=== PATIENT | female | born 1975 | race Caucasian/White ===

== ENCOUNTER 2024-07-28 05:04 | Inpatient (IN) | payer MEDICAID ==
[~2024-07-28] VITALS: Ht 175.3 cm; Wt 80.0 kg
[~2024-07-28 05:04] MED LIST: CYCL-1 PO
[2024-07-28] MEDS ORDERED: LIDOcaine 1% W/epiNEPHrine 1:200,000 10ml vial IJ ONE (08:35)
[2024-07-28] MEDS: LIDOcaine 1% W/epiNEPHrine 1:100,000 20ml vial IJ ONE (08:40)
[2024-07-28 09:11] LABS: BASOPHILS % (AUTO) 0.4 % (0-1); EOSINOPHILS # (AUTO) 0.1 X10'3 (0-0.9); EOSINOPHILS % (AUTO) 2.6 % (0-6); HEMATOCRIT 38.6 % (35.0-45.0); HEMOGLOBIN 13.3 g/dl (12.0-16.0); LYMPHOCYTES % (AUTO) 39.1 % (21-51); MEAN CORPUSCULAR HEMOGLOBIN 35.6 PG (27.0-31.0); MEAN CORPUSCULAR HGB CONC 34.5 g/dL (33.0-36.5); MEAN CORPUSCULAR VOLUME 103.3 FL (78-98); MEAN PLATELET VOLUME 6.3 FL (7.4-10.4); MONOCYTES # (AUTO) 0.4 X10'3 (0-0.9); MONOCYTES % (AUTO) 7.8 % (2-12); NEUTROPHILS # (AUTO) 2.6 X10'3 (1.8-7.7); NEUTROPHILS % (AUTO) 50.1 % (42-75); PLATELET COUNT 181 X10'3 (140-440); RED BLOOD COUNT 3.73 X10'6 (4.20-5.60); RED CELL DISTRIBUTION WIDTH 16.2 % (11.5-14.5); WHITE BLOOD COUNT 5.2 X10'3 (4.5-11.0)
[2024-07-28] MEDS: CefTRIAXone 1000mg IM Kit (w/lidocaine diluent) IM ONE (09:21)
[2024-07-28] MEDS: sulfamethoxazole/trimethoprim DS (800/160mg) tablet PO ONE (09:22)
[2024-07-28] MEDS: TETanus/Pertussis (Acell)/Diphther VAC/PF (Tdap-Adult) 0.5ml syringe IMVAC ONE (09:22)
[2024-07-28 10:46] LABS: ALANINE AMINOTRANSFERASE 134 U/L (12-78); ALBUMIN 3.4 G/DL (3.4-5.0); ALBUMIN/GLOBULIN RATIO 0.8 (1.1-1.5); ALKALINE PHOSPHATASE 76 IU/L (46-116); ANION GAP 14 (8-16); ASPARTATE AMINO TRANSFERASE 325 U/L (10-37); BILIRUBIN,TOTAL 0.4 MG/DL (0.1-1.0); BLOOD UREA NITROGEN 10 MG/DL (7-18); BUN/CREATININE RATIO 13.9 (10.0-20.0); C-REACTIVE PROTEIN 2.12 MG/DL (0.0-0.5); CHLORIDE 105 MMOL/L (99-107); CREATININE 0.72 MG/DL (0.40-0.90); GLUCOSE 70 MG/DL (70-104); POTASSIUM 3.8 MMOL/L (3.5-5.1); SODIUM 144 MMOL/L (135-145); TOTAL CARBON DIOXIDE 24.6 MMOL/L (24-32); TOTAL PROTEIN 7.6 G/DL (6.4-8.2); eCRCL 100 ML/MIN; eGFR 86 ML/MIN
[2024-07-28] MEDS: normal saline 1000ml 1,000 ML IV ONE ×4 (12:14→15:10)
[2024-07-28] MEDS: vancomycin/NS 1 GM ADD-VANTAGE 250 ML IV ONE (12:24)
[2024-07-28] MEDS: oxyCODONE IR 5mg (immed. release) tablet PO ONE (12:25)
[2024-07-28] MEDS: ondansetron 4mg rapidly disintigrating tab PO ONE (12:25)
[2024-07-28] MEDS: CefTRIAXone/D5W-Rocephin 1gm 50 ML IV ONE (15:10)
[2024-07-28] MEDS ORDERED: magnesium Cl slow-release 64mg tablet PO PRN (15:25)
[2024-07-28] MEDS ORDERED: mag hydrox/Alum hydrox/simeth 30ml oral suspension PO PRN (15:25)
[2024-07-28] MEDS ORDERED: potassium Cl 40MEQ/1/2NS 520ml 520 ML IV PRN (15:25)
[2024-07-28] MEDS ORDERED: acetaminophen 325mg tablet PO PRN (15:25)
[2024-07-28] MEDS ORDERED: potassium Cl 20 mEq SR tablet PO PRN ×2 (15:25)
[2024-07-28] MEDS: HYDROcodone/acetaminophen 10/325mg tab PO PRN (16:36)
[2024-07-28] MEDS: ondansetron/PF 4mg/2ml inj IV PRN (16:52)
[2024-07-28] MEDS: proCHLORperazine 10 MG/2 ml inj IV PRN (17:53)
[2024-07-28] MEDS: normal saline 1000ml 1,000 ML IV SCH (18:20)
[2024-07-28] MEDS ORDERED: CLON-852 PO (18:21)
[2024-07-28] MEDS: docusate sod 100mg capsule PO SCH (19:34)
[2024-07-28] MEDS: K and/or MAG REPLACEMENT MC SCH (19:35)
[2024-07-28 20:35] VITALS: RESP 18; O2SAT 96
[2024-07-28 22:00] VITALS: BP 137/86; PULSE 85; RESP 18; TEMP 98.6; O2SAT 96
[2024-07-29] VITALS (7 sets, daily range): BP systolic 131–147; BP diastolic 82–97; PULSE 67–80; RESP 15–18; TEMP 97.4–98.4; O2SAT 94–99
[2024-07-29] MEDS: clonazePAM 1mg tablet PO ONE (00:08)
[2024-07-29] MEDS: VANCOMYCIN/WATER FOR INJ (PEG) 1.25GM/250 ML IVPB IV SCH (00:09)
[2024-07-29 05:00] LABS: BASOPHILS % (AUTO) 0.9 % (0-1); EOSINOPHILS # (AUTO) 0.1 X10'3 (0-0.9); EOSINOPHILS % (AUTO) 3.6 % (0-6); HEMATOCRIT 32.7 % (35.0-45.0); HEMOGLOBIN 11.5 g/dl (12.0-16.0); LYMPHOCYTES # (AUTO) 1.5 X10'3 (1.1-4.8); LYMPHOCYTES % (AUTO) 39.3 % (21-51); MEAN CORPUSCULAR HEMOGLOBIN 36.1 PG (27.0-31.0); MEAN CORPUSCULAR HGB CONC 35.1 g/dL (33.0-36.5); MEAN PLATELET VOLUME 6.2 FL (7.4-10.4); MONOCYTES # (AUTO) 0.5 X10'3 (0-0.9); MONOCYTES % (AUTO) 12.6 % (2-12); NEUTROPHILS # (AUTO) 1.7 X10'3 (1.8-7.7); NEUTROPHILS % (AUTO) 43.6 % (42-75); PLATELET COUNT 122 X10'3 (140-440); RED BLOOD COUNT 3.17 X10'6 (4.20-5.60); WHITE BLOOD COUNT 3.9 X10'3 (4.5-11.0)
[2024-07-29 05:27] LABS: ALANINE AMINOTRANSFERASE 84 U/L (12-78); ALBUMIN 2.5 G/DL (3.4-5.0); ALBUMIN/GLOBULIN RATIO 0.7 (1.1-1.5); ALKALINE PHOSPHATASE 59 IU/L (46-116); ANION GAP 8 (8-16); ASPARTATE AMINO TRANSFERASE 146 U/L (10-37); BILIRUBIN,TOTAL 0.7 MG/DL (0.1-1.0); BLOOD UREA NITROGEN 7 MG/DL (7-18); BUN/CREATININE RATIO 10.8 (10.0-20.0); CALCIUM 7.3 MG/DL (8.5-10.1); CHLORIDE 101 MMOL/L (99-107); CREATININE 0.65 MG/DL (0.40-0.90); GLUCOSE 95 MG/DL (70-104); POTASSIUM 3.1 MMOL/L (3.5-5.1); SODIUM 136 MMOL/L (135-145); TOTAL CARBON DIOXIDE 26.8 MMOL/L (24-32); TOTAL PROTEIN 5.9 G/DL (6.4-8.2); eCRCL 111 ML/MIN; eGFR > 90 ML/MIN
[2024-07-29] MEDS: CefTRIAXone/D5W-Rocephin 1gm 50 ML IV SCH (08:48)
[2024-07-29] MEDS: ringers solution, lacted 1,000 ML IV SCH (08:54)
[2024-07-29] MEDS: magnesium sulf-water 2g/50mL 50 ML IV PRN (08:58)
[2024-07-29] MEDS: magnesium sulf-water 4G/100mL 100 ML IV PRN (13:16)
[2024-07-29 14:56] LABS: BILIRUBIN,URINE NEGATIVE (Neg); CLARITY,URINE CLEAR (Clear); COLOR,URINE STRAW (Yellow); GLUCOSE, URINE NEGATIVE (Neg); KETONES,URINE TRACE mg/dl (Neg); LEUKOCYTE ESTERASE ,URINE NEGATIVE (Neg); NITRITES, URINE NEGATIVE (Neg); OCCULT BLOOD,URINE NEGATIVE (Neg); PH,URINE 7.5 (4.8-8.0); PROTEIN,URINE NEGATIVE (Neg)
[2024-07-29 15:01] LABS: UA COLLECTION TYPE OTHER
[2024-07-29 15:07] LABS: CHLORIDE,URINE RANDOM 84 MEQ/L; SODIUM,URINE RANDOM 111 MEQ/L
[2024-07-29 15:18] LABS: MAGNESIUM 2.8 MG/DL (1.5-2.4)
[2024-07-29 18:43] LABS: ALLEN'S TEST POSITIVE
[2024-07-29 18:44] LABS: ABG HCO3 26.2 mmol/L (21.0-28.0); ABG PCO2 (T) 34.6 mmHg (32.0-45.0); ABG PH (T) 7.497 (7.350-7.450); PATIENT TEMPERATURE 36.9
[2024-07-29 18:45] LABS: ABG BASE EXCESS 3.2 mmol/L (-2.0-3.0); ABG OXYGEN SATURATION 98.6 % (94.0-98.0); FCOHb 0.4 % (0.5-1.5); FHHb 1.4 % (0.0-5.0); FMetHb 0.3 % (0.0-1.5); FO2Hb 97.9 % (94.0-98.0); TOTAL HEMOGLOBIN 12.8 G/dl (12.0-16.0)
[2024-07-29] MEDS ORDERED: GADOTERATE MEGLUMINE 7.5 MMOL/15 ML VIAL IV ONE (18:50)
[2024-07-29] MEDS: clonazePAM 1mg tablet PO PRN (20:51)
[2024-07-29] MEDS: heparin, porcine 5000 units/ml vial SQ SCH (20:51)
[2024-07-30 06:00] VITALS: BP 126/87; PULSE 66; RESP 17; TEMP 97.4; O2SAT 99
[2024-07-30 06:55] LABS: BASOPHILS % (AUTO) 0.6 % (0-1); EOSINOPHILS # (AUTO) 0.2 X10'3 (0-0.9); EOSINOPHILS % (AUTO) 7.8 % (0-6); HEMATOCRIT 34.9 % (35.0-45.0); HEMOGLOBIN 12.2 g/dl (12.0-16.0); LYMPHOCYTES # (AUTO) 1.1 X10'3 (1.1-4.8); LYMPHOCYTES % (AUTO) 36.5 % (21-51); MEAN CORPUSCULAR HGB CONC 34.9 g/dL (33.0-36.5); MEAN CORPUSCULAR VOLUME 103.2 FL (78-98); MEAN PLATELET VOLUME 6.9 FL (7.4-10.4); MONOCYTES # (AUTO) 0.3 X10'3 (0-0.9); MONOCYTES % (AUTO) 9.8 % (2-12); NEUTROPHILS # (AUTO) 1.3 X10'3 (1.8-7.7); NEUTROPHILS % (AUTO) 45.3 % (42-75); PLATELET COUNT 131 X10'3 (140-440); RED BLOOD COUNT 3.38 X10'6 (4.20-5.60); RED CELL DISTRIBUTION WIDTH 16.3 % (11.5-14.5); WHITE BLOOD COUNT 2.9 X10'3 (4.5-11.0)
[2024-07-30 07:23] LABS: ALANINE AMINOTRANSFERASE 74 U/L (12-78); ALBUMIN 2.6 G/DL (3.4-5.0); ALBUMIN/GLOBULIN RATIO 0.7 (1.1-1.5); ALKALINE PHOSPHATASE 64 IU/L (46-116); ANION GAP 8 (8-16); ASPARTATE AMINO TRANSFERASE 108 U/L (10-37); BILIRUBIN,TOTAL 0.8 MG/DL (0.1-1.0); BLOOD UREA NITROGEN 3 MG/DL (7-18); BUN/CREATININE RATIO 5.4 (10.0-20.0); CHLORIDE 104 MMOL/L (99-107); CREATININE 0.56 MG/DL (0.40-0.90); GLUCOSE 93 MG/DL (70-104); MAGNESIUM 1.8 MG/DL (1.5-2.4); POTASSIUM 3.6 MMOL/L (3.5-5.1); SODIUM 137 MMOL/L (135-145); TOTAL CARBON DIOXIDE 24.7 MMOL/L (24-32); TOTAL PROTEIN 6.2 G/DL (6.4-8.2); eCRCL 128 ML/MIN; eGFR > 90 ML/MIN
[2024-07-30 07:34] LABS: ANISOCYTOSIS 1+; PLATELET ESTIMATE DECREASED; TOTAL CELLS COUNTED 100
[2024-07-30 08:40] VITALS: RESP 16
[2024-07-30 08:53] LABS: HEMOGLOBIN A1C 4.8 % (4.5-6.2)
[2024-07-30] MEDS: magnesium hydroxide 30ml (MOM) UD suspension PO PRN (08:53)
[2024-07-30 10:00] VITALS: BP 160/80; PULSE 88; RESP 20; TEMP 97.5; O2SAT 99
[2024-07-30 11:01] VITALS: RESP 16
[2024-07-30] MEDS: VANCOMYCIN LEVEL IV ONE (11:49)
[2024-07-30] MEDS ORDERED: LINE600T14 PO (13:57)
[2024-07-30] MEDS ORDERED: CEFD300C3 PO (13:57)
[2024-07-30] MEDS ORDERED: HYDR-3965 PO (14:05)
[2024-07-30] MEDS ORDERED: ASPI81TA52 PO (14:06)
[2024-07-31] MEDS ORDERED: VANCOMYCIN/WATER FOR INJ (PEG) 1.5GM/300 ML IVPB IV SCH
[2024-08-01] MEDS ORDERED: VANCOMYCIN LEVEL IV ONE (11:30)
== END 2024-07-30 15:58 | disposition home or self-care (01) | DRG 720 ==
LOC: ER 05:04 → ED HOLD 15:25 → SUR 3N 20:35
PROVIDERS: ADMIT Internal Medicine; ATTEND Nurse Practitioner Family
DX: A41.9 Sepsis, unspecified organism (principal); E83.42 Hypomagnesemia; F41.9 Anxiety disorder, unspecified; L03.113 Cellulitis of right upper limb; M70.21 Olecranon bursitis, right elbow; G89.29 Other chronic pain; R74.01 Elevation of levels of liver transaminase levels; E87.6 Hypokalemia; Z90.5 Acquired absence of kidney
CPT/HCPCS: 36415; 71045; 73080; 73223; 80053; 80202; 80320; 81003; 82436; 82693; 82803; 83036; 83605; 83735; 84132; 84133; 84145; 84300; 85007; 85018; 85025; 86140; 87040; 87081; 90715; 99285; A4565; A6258; A6449; A9575; G0378; J0696; J0780; J1644; J2405; J3370; J3372; J3475; J7030; J7120

== ENCOUNTER 2025-05-08 14:17 | Emergency (ER) | payer MEDICAID ==
[~2025-05-08] VITALS: Ht 175.3 cm; Wt 71.1 kg
[~2025-05-08 14:17] MED LIST changes: +CEFD300C3 PO; +CLON-852 PO; -CYCL-1 PO; +LINE600T14 PO
[2025-05-08 14:24] VITALS: TEMP 97.8
--- NOTE | 2025-05-08 14:50 | Physician Documentation ---
History of Present Illness General Chief Complaint: See Chief Complaint Stated Complaint: POSS SEIZURE Time Seen by MD: 14:51 OK to notify your PCP?: No Primary Medical Doctor: Julien Source: patient, RN notes reviewed Mode of Arrival: POV Exam Limitations: no limitations History of Present Illness Initial Comments 49 Year old female, with history of seizures for the last four years - most recently 1.5 months ago, presents to the ED complaining of history in her head and a flashing light in her right eye that began a few hours ago. Patient reports similar symptoms in the past, which have proceeded seizures. She is currently not on any seizure medications and is requesting a prescription for Keppra, which she used to take. She reports occasional alcohol consumption but denies any drug use. Medication Reconciliation Allergies: Coded Allergies: fentanyl (Verified Allergy, Intermediate, HIVES, 05/08/25) Uncoded Allergies: FLU VACCINATION (Adverse Reaction, Intermediate, SWELLING, 06/25/16) Scheduled Cefdinir (Cefdinir), 1 CAP PO Q12H Levetiracetam (Keppra), 1 TAB PO Q12H Linezolid (Linezolid), 1 TAB PO Q12H Scheduled PRN Clonazepam (Klonopin), 1 TAB PO TID PRN PRN for anxiety, (Reported) Past Medical History Past Medical History: Seizures, Kidney Stones, Chronic Back Pain, Anxiety Past Surgical History: abdominal surgery Smoking: Non-Smoker Alcohol Use: None Drug Use: none Lives In: Home Review of Systems All Other Systems at this time: Reviewed and Negative ROS As stated above in the HPI, otherwise all systems are reviewed and negative. Physical Exam Physical Exam Vital Signs: RN Vital Signs have been reviewed: Yes, Temperature: 97.8, Source: Oral, Heart Rate: 89, Respiratory Rate: 18, BP: 165/97, Pulse Oximetry: 98, Weight: 71.100 Oxygen Flow Rate: 0 Pulse Oximetry Reflects: adequate oxygenation Physical Exam VITALS: Reviewed and as above. GENERAL: Alert, no apparent distress. HEENT: Normocephalic, atraumatic, PERRL, EOMI, dry mucosa, no erythema RESPIRATORY: Lungs clear, normal breath sounds, no respiratory distress. CHEST: No accessory muscle use, no retractions CV: Regular rate, rhythm, no edema, no murmur, No: JVD MUSCULOSKELETAL No deformities, no edema SKIN: Warm and dry, no rash NEURO: Oriented x4, No motor or sensory deficit PSYCH: Normal mood and affect, no agitation Progress Results/Orders Reviewed/noted all lab results: Yes Results/Orders Completed Orders - OHLSHAYY DEVRIES MD Levetiracetam Tablet (Keppra Tablet) (05/08/25 15:00) Vital Signs 05/08/25 05/08/25 14:24 15:23 Temp 97.8 Pulse 89 82 Resp 18 20 B/P (MAP) 165/97 161/102 Pulse Ox 98 98 O2 Flow Rate 0 Laboratory Tests Test 05/08/25 14:39 White Blood Count 5.5 Red Blood Count 3.87 L Hemoglobin 13.9 Hematocrit 40.5 Mean Corpuscular Volume 104.8 H Mean Corpuscular Hemoglobin 36.0 H Mean Corpuscular Hemoglobin Concent 34.3 Red Cell Distribution Width 14.0 Platelet Count 199 Mean Platelet Volume 7.4 Neutrophils (%) (Auto) 71.1 Lymphocytes (%) (Auto) 19.9 L Monocytes (%) (Auto) 8.1 Eosinophils (%) (Auto) 0.2 Basophils (%) (Auto) 0.7 Neutrophils # (Auto) 3.9 Lymphocytes # (Auto) 1.1 Monocytes # (Auto) 0.4 Eosinophils # (Auto) 0.0 Basophils # (Auto) 0.0 CBC Comment Sodium Level 140 Potassium Level 3.5 Chloride Level 99 Carbon Dioxide Level 28.5 Anion Gap 13 Blood Urea Nitrogen 10 Creatinine 0.87 Estimated GFR/1.73 m2 69 BUN/Creatinine Ratio 11.5 Glucose Level 97 Calcium Level 8.4 L Albumin 3.7 Chemistry Comments Medical Decision Making Additional information obtaine: old records Findings Patient is a 49-year-old female who states she feels like she is going to have a seizure she has had seizures in the past the patient has a normal neurologic examination the patient is requesting to be back on her seizure medicine the patient was loaded with a g of Keppra she will be discharged on Keppra. The patient's prior hospitalizations were reviewed the patient's pulse oximetry was interpreted as normal and adequate. The Differential Diagnosis Seizures, atypical migraine Departure Time of Disposition: 15:02 Disposition: 01 HOME / SELF CARE / HOMELESS Impression: Primary Impression: Medication refill Condition: Stable Discharge Instructions: General Discharge Instructions Additional Instructions: Take Keppra as prescribed. Follow up with your regular doctor. Return to the ER for new or worsening symptoms or other concerns. Prescriptions Levetiracetam (Keppra) 500 Mg Tablet 1 TAB PO Q12H for 30 Days, #60 TAB 0 Refills Prov: SHAYY SKINNER MD 05/08/25 Education Educated: Patient Educated regarding: diagnosis, treatment, need for follow up Signature Scribe Signature: Scribed for Shayy Skinner MD by Adriana Chase . 05/08/25 14:58 Attestation: The note accurately reflects work and decisions made by me.Shayy Skinner MD 05/10/25 14:19 SHAYY SKINNER MD May 08, 2025 14:50 ADRIANA RANDALL May 08, 2025 15:03
[2025-05-08] MEDS ORDERED: KEP500T PO (15:00)
[2025-05-08 15:02] LABS: CREATININE 0.87 MG/DL (0.40-0.90); MEAN PLATELET VOLUME 7.4 FL (7.4-10.4); RED CELL DISTRIBUTION WIDTH 14.0 % (11.5-14.5); TOTAL CARBON DIOXIDE 28.5 MMOL/L (24-32); eCRCL 83 ML/MIN; eGFR 69 ML/MIN
[2025-05-08 15:23] VITALS: BP 161/102; PULSE 82; RESP 20; O2SAT 98
== END 2025-05-08 15:29 | disposition home or self-care (01) ==
LOC: ER 14:18
DX: Z76.0 Encounter for issue of repeat prescription (principal); R56.9 Unspecified convulsions; G89.29 Other chronic pain; Z88.5 Allergy status to narcotic agent; Z87.442 Personal history of urinary calculi; Z79.899 Other long term (current) drug therapy
CPT/HCPCS: 36415; 80048; 85025; 99283